=== PATIENT | female | born 1975 | race Caucasian/White ===

== ENCOUNTER 2020-07-14 14:12 | Emergency (ER) | payer BC, OTHER ==
[~2020-07-14] VITALS: Ht 157 cm; Wt 90.7 kg
--- NOTE | 2020-07-14 14:49 | ED Chest Pain ---
General Chief Complaint: Chest Pain Stated Complaint: CHEST PAIN/PRESSURE Nursing Triage Note: PT PRESENTS TO ED VIA POV FROM HOME WITH COMPLAINTS OF CHEST TIGHTNESS X 2 DAYS. Nursing Sepsis Screen: No Definite Risk Source: patient Exam Limitations: no limitations History of Present Illness Date Seen by Provider: Jul 14, 2020 Time Seen by Provider: 14:30 Initial Comments Patient is a 44-year-old female who presents to the emergency department today with a chief complaint of substernal chest pain that she rated at a "6 of 10" last evening. Patient describes the pain as a "tightness". Today she has this discomfort in her right shoulder. Patient states she had some associated nausea, dizziness and shortness of breath. Patient states the nausea and the dizziness lasted about 10 minutes and then resolved. The chest pain persisted and was rated at a "3 of 10". Patient states that the pain has been constant since yesterday. She states she has a significant paternal family history of coronary artery disease in aunts and uncles and her grandmother and father. Patient states that she occasionally smokes cigarettes. She does not take any daily medications. She is not treated for hypertension. She states she recalls that possibly her cholesterol was a little bit high but she is not on medication for this either. She denies any recent illnesses such as fevers, chills, productive cough. No vomiting or diarrhea. She did just have prolonged immobility related to a car trip to [place] and came back last Tuesday. She spent 14 hours in [address] ways. No family history of blood clotting disorder. Patient has a personal history of some GERD that was treated about 2 years ago with a couple months of Prilosec [id number]. She states this discomfort or "tightness" does not feel like her GERD symptoms. Timing/Duration: 24 hours Severity/Quality: moderate, tightness Location: central Radiation: shoulders (right ) Activities at Onset: none Prior CP/Workup: no prior chest pain, no prior cardiac workup Modifying Factors: worse with breathing ASA po GROOVING MACHINE OPERATOR: No NTG SL GROOVING MACHINE OPERATOR: No Associated Symptoms: dizziness, nausea/vomiting, shortness of breath Allergies and Home Medications Allergies Coded Allergies: Sulfa (Sulfonamide Antibiotics) (Verified Allergy, Unknown, 07/14/20) Patient Home Medication List Home Medication List Reviewed: Yes Review of Systems Review of Systems Constitutional: see HPI EENTM: No Symptoms Reported Respiratory: Shortness of Air Cardiovascular: Chest Pain Gastrointestinal: Nausea Genitourinary: No Symptoms Reported Musculoskeletal: no symptoms reported Skin: no symptoms reported All Other Systems Reviewed Negative Unless Noted: Yes Past Qitnhab-Faezkh-Bskntv Hx Patient Social History Alcohol Use: Occasionally Uses Smoking Status: Current Someday Smoker Type Used: Cigarettes Recent Infectious Disease Expo: No Recent Hopitalizations: No Seasonal Allergies Seasonal Allergies: Yes Past Medical History Surgeries: No Respiratory: No Cardiac: No Neurological: No Genitourinary: No Musculoskeletal: No Endocrine: No HEENT: No Cancer: No Psychosocial: No Integumentary: No Blood Disorders: No Physical Exam Vital Signs Vital Signs - First Documented 07/14/20 14:23 Temp 35.8 Pulse 102 Resp 14 B/P (MAP) 154/105 (121) Pulse Ox 99 O2 Delivery Room Air Capillary Refill : Less Than 3 Seconds Height, Weight, BMI Height: '" Weight: lbs. oz. kg; 36.00 BMI Method: General Appearance: No Apparent Distress, WD/WN HEENT: PERRL/EOMI Neck: Normal Inspection Respiratory: Lungs Clear, Normal Breath Sounds, No Accessory Muscle Use, No Respiratory Distress Cardiovascular: Regular Rate, Rhythm, No Murmur Gastrointestinal: Normal Bowel Sounds, Non Tender, Soft Extremity: Normal Capillary Refill, Normal Inspection, Normal Range of Motion, Non Tender, No Calf Tenderness Neurologic/Psychiatric: Alert, Oriented x3, No Motor/Sensory Deficits, Normal Mood/Affect Progress/Results/Core Measures Results/Orders Lab Results Laboratory Tests Test 07/14/20 14:20 Range/Units White Blood Count 12.9 H 4.3-11.0 10^3/uL Red Blood Count 4.69 3.80-5.11 10^6/uL Hemoglobin 13.8 11.5-16.0 g/dL Hematocrit 41 35-52 % Mean Corpuscular Volume 88 80-99 fL Mean Corpuscular Hemoglobin 29 25-34 pg Mean Corpuscular Hemoglobin Concent 33 32-36 g/dL Red Cell Distribution Width 12.8 10.0-14.5 % Platelet Count 320 130-400 10^3/uL Mean Platelet Volume 10.6 9.0-12.2 fL Immature Granulocyte % (Auto) 0 % Neutrophils (%) (Auto) 68 42-75 % Lymphocytes (%) (Auto) 23 12-44 % Monocytes (%) (Auto) 6 0-12 % Eosinophils (%) (Auto) 3 0-10 % Basophils (%) (Auto) 0 0-10 % Neutrophils # (Auto) 8.8 H 1.8-7.8 X 10^3 Lymphocytes # (Auto) 2.9 1.0-4.0 X 10^3 Monocytes # (Auto) 0.8 0.0-1.0 X 10^3 Eosinophils # (Auto) 0.3 0.0-0.3 10^3/uL Basophils # (Auto) 0.1 0.0-0.1 10^3/uL Immature Granulocyte # (Auto) 0.0 0.0-0.1 10^3/uL D-Dimer < 0.27 0.00-0.49 UG/ML Sodium Level 142 135-145 MMOL/L Potassium Level 4.0 3.6-5.0 MMOL/L Chloride Level 103 98-107 MMOL/L Carbon Dioxide Level 27 21-32 MMOL/L Anion Gap 12 5-14 MMOL/L Blood Urea Nitrogen 13 7-18 MG/DL Creatinine 0.88 0.60-1.30 MG/DL Estimat Glomerular Filtration Rate > 60 BUN/Creatinine Ratio 15 Glucose Level 94 70-105 MG/DL Calcium Level 9.6 8.5-10.1 MG/DL Total Creatine Kinase 91 29-168 U/L Creatine Kinase MB 0.8 <6.6 NG/ML Troponin I < 0.028 <0.028 NG/ML My Orders Orders - MILAGROS MELO MD Ed Iv/Invasive Line Start (07/14/20 14:49) Cbc With Automated Diff (07/14/20 14:49) Basic Metabolic Panel (07/14/20 14:49) Fibrin Degradation Products (07/14/20 14:49) Creatine Kinase (07/14/20 14:49) Creatine Kinase Mb (07/14/20 14:49) Troponin I (07/14/20 14:49) Chest 1 View, Ap/Pa Only (07/14/20 14:49) Ekg Tracing (07/14/20 14:49) Aspirin Chewable Tablet (Baby Aspirin Ch (07/14/20 15:00) Nitroglycerin 0.4 Mg Btl 25's (Nitrostat (07/14/20 15:00) Ekg Tracing (07/14/20 15:39) Medications Given in ED Current Medications Medications Dose Ordered Sig/Chavez Route Start Time Stop Time Status Last Admin Dose Admin Aspirin 324 mg ONCE ONCE PO 07/14/20 15:00 07/14/20 15:01 DC 07/14/20 14:58 324 MG Nitroglycerin 0.4 mg NEEDED PRN SL 07/14/20 15:00 07/14/20 15:13 0.4 MG Vital Signs/I&O 07/14/20 07/14/20 14:23 14:23 Temp 35.8 Pulse 102 Resp 14 B/P (MAP) 154/105 (121) Pulse Ox 99 O2 Delivery Room Air Blood Pressure Mean: 121 Progress Progress Note : Time: 13:53 Progress Note Patient seen and examined, 44-year-old female presents to the emergency department today with a chief complaint of "chest tightness" ongoing and constant since yesterday. Patient evaluation today includes a physical exam, CBC, chemistry, cardiac enzyme profile, EKG and chest x-ray. Patient had 2 EKGs in the department both of which were identical with pain and without pain. Patient's serum troponin is undetectable in the setting of chest pain greater than 6 hours this is a reassuring finding. Patient's pain was alleviated with sublingual nitroglycerin x2. I suspect that there may be a component of GERD to her pain. Patient is advised to follow-up with her primary care physician. She is advised to monitor her blood pressures as she did come in mildly hypertensive this afternoon. She verbalizes understanding and is comfortable with the plan of care which includes discharge. All questions are sought and answered. P atient is stable for discharge. Initial ECG Impression Date: Jul 14, 2020 Initial ECG Impression Time: 14:20 Initial ECG Rate: 87 Initial ECG Rhythm: Normal Sinus Initial ECG Intervals: Normal Initial ECG Impression: Normal, Nonspecific Changes Initial ECG Comparisson: No Previous ECG Available EKG : EKG Time: 13:46 Rate: 75 Rhythm: Normal Sinus Intervals: Normal ECG Comparisson: Unchanged ECG Impression: Normal Diagnostic Imaging Diagonstic Imaging: Xray Plain Films/CT/US/NM/MRI: chest Comments [facility] [place], [place] NAME: DENIS PARKER [facility] REC#: [id number] PT STATUS: REG ER : 1975 PHYSICIAN: MILAGROS MELO MD ADMIT DATE: 07/14/20/ER Draft Date of Exam:07/14/20 CHEST 1 VIEW, AP/PA ONLY EXAMINATION: Portable erect AP chest at 2:56 PM. INDICATION: Chest tightness. COMPARISON: There are no prior studies available for comparison. FINDINGS: The heart size is within normal limits. The lungs are clear. The osseous structures, where visualized, are intact. IMPRESSION: Negative for active disease. Dictated on workstation # [id number] Dict: 07/14/20 1515 Trans: 07/14/20 1534 [id number] Interpreted by: ROMEO MORTENSEN MD Electronically signed by: Departure Impression Primary Impression: Chest pain Qualified Codes: R07.9 - Chest pain, unspecified Disposition: 01 HOME, SELF-CARE Condition: Stable Departure-Patient Inst. Decision time for Depature: 15:48 Referrals: SURYA CURRY MD (PCP/Family) Primary Care Physician Patient Instructions: Chest Pain That Is Not Caused by the Heart (DC) Add. Discharge Instructions: Take a baby aspirin daily. Please call and follow-up with your primary care physician. Keep a record of your blood pressures at random times of the day on various days. Take this with you to your doctor's appointment. Return to the emergency room if you have any recurrence of chest pain especially pain that is associated with sweating, nausea, shortness of breath or any other emergent concerning symptoms. MILAGROS MELO MD Jul 14, 2020 14:49
[2020-07-14] MEDS ORDERED: ASPIRIN 81 MG CHEW (CHILDREN'S ASA) PO ONE (15:00)
[2020-07-14 15:04] LABS: BASOPHILS # (AUTO) 0.1 10^3/uL (0.0-0.1); BASOPHILS % (AUTO) 0 % (0-10); CHLORIDE 103 MMOL/L (98-107); EOSINOPHILS # (AUTO) 0.3 10^3/uL (0.0-0.3); EOSINOPHILS % (AUTO) 3 % (0-10); HEMATOCRIT 41 % (35-52); HEMOGLOBIN 13.8 g/dL (11.5-16.0); LYMPHOCYTES # (AUTO) 2.9 X 10^3 (1.0-4.0); LYMPHOCYTES % (AUTO) 23 % (12-44); MEAN CORPUSCULAR HEMOGLOBIN 29 pg (25-34); MEAN CORPUSCULAR HGB CONC 33 g/dL (32-36); MEAN CORPUSCULAR VOLUME 88 fL (80-99); MEAN PLATELET VOLUME 10.6 fL (9.0-12.2); MONOCYTES # (AUTO) 0.8 X 10^3 (0.0-1.0); MONOCYTES % (AUTO) 6 % (0-12); NEUTROPHILS # (AUTO) 8.8 X 10^3 (1.8-7.8); NEUTROPHILS % (AUTO) 68 % (42-75); PLATELET COUNT 320 10^3/uL (130-400); SODIUM 142 MMOL/L (135-145); WHITE BLOOD COUNT 12.9 10^3/uL (4.3-11.0)
[2020-07-14] MEDS: NITROGLYCERIN 0.4 MG SL TABS BTL 25'S SL PRN ×2 (15:04→15:13)
[2020-07-14 15:05] LABS: CALCIUM 9.6 MG/DL (8.5-10.1)
[2020-07-14 15:06] LABS: GLUCOSE 94 MG/DL (70-105)
[2020-07-14 15:07] LABS: CARBON DIOXIDE 27 MMOL/L (21-32)
[2020-07-14 15:10] LABS: BUN/CREATININE RATIO 15; CREATININE SERUM 0.88 MG/DL (0.60-1.30); GFR ESTIMATED > 60
[2020-07-14 15:12] LABS: CREATINE KINASE 91 U/L (29-168)
[2020-07-14 15:18] LABS: CREATINE KINASE MB 0.8 NG/ML (<6.6)
--- NOTE | 2020-07-14 15:34 | Diagnostic Imaging Report ---
EXAMINATION: Portable erect AP chest at 2:56 PM. INDICATION: Chest tightness. COMPARISON: There are no prior studies available for comparison. FINDINGS: The heart size is within normal limits. The lungs are clear. There is no sign of pneumonia or for pleural effusion. The mediastinum is not widened.. The osseous structures, where visualized, are intact. IMPRESSION: Negative for active disease. Dictated by: Dictated on workstation # [id number]
[2020-07-14 15:59] VITALS: BP 122/104
== END 2020-07-14 15:59 | disposition home or self-care (01) ==
LOC: ER 14:15
DX: R07.9 Chest pain, unspecified (principal); I10 Essential (primary) hypertension; F17.210 Nicotine dependence, cigarettes, uncomplicated; Z88.2 Allergy status to sulfonamides
CPT/HCPCS: 36415; 71045; 80048; 82550; 82553; 84484; 85025; 85379; 93005